=== PATIENT | male | born 1970 | race Caucasian/White ===

== ENCOUNTER → 2021-06-20 07:48 | Outpatient (BNVA) | payer BC, SELFPAY | PROVIDERS: PCP Internal Medicine; Visit Provider Nurse Practitioner Family | DX: Z13.89 Encounter for screening for other disorder (principal) ==

== ENCOUNTER → 2022-03-21 13:34 | Outpatient (BNVA) | payer BC, SELFPAY | PROVIDERS: PCP Internal Medicine; Visit Provider Nurse Practitioner Family | DX: Z13.89 Encounter for screening for other disorder (principal) ==

== ENCOUNTER 2022-09-19 14:28 | Outpatient (AMB) | payer BC, SELFPAY ==
[2022-09-19 14:33] VITALS: BP 108/72; PULSE 79; O2SAT 98; BMI 22.7
--- NOTE | 2022-09-19 14:33 | MHC.OFFVIS ---
Intake Vital Signs 09/19/22 14:33 Height 5 ft 10 in Weight 158 lb 4 oz BMI 22.7 BP 108/72 Blood Pressure Location Lt brachial Position Sitting Pulse 79 Pulse Source Pulse Oximeter Pulse Oximetry (%) 98 Oxygen Delivery Method Room Air Intake Visit Reasons: 6m follow up Tourette's Syndrome - Confirmed Intake Note: Pt presents as a 6 month f/u for Tourettes syndrome. Pt states no concerns. Continuous Improvement Director Required: No Allergies Penicillins [PENICILLINS] Allergy (Unknown, Verified 09/19/22 14:35) UNKNOWN Sulfa (Sulfonamide Antibiotics) [SULFA (SULFONAMIDE ANTIBIOTICS)] Allergy (Unknown, Verified 09/19/22 14:35) UNKNOWN Medication List - Last Reconciled 09/19/22 by GORDON Min clonazepam 1 mg PO QID 30 days ibuprofen 400 mg PO Q6H PRN metformin 500 mg PO BID simvastatin 10 mg PO QPM HPI HPI Comments History of Present Illness Details 52-yr-old male presents for f/u visit. Pt denies any significant interval medical changes. Pt reports his Tourrette and tic symptoms are well-controlled on Clonazepam. He is taking 2-3 doses per day- may notice more symptoms if he takes less. No significant breakthrough symptoms. No recent headaches. ?? PFSH Surgical History H/O hernia repair Family History Mother Diabetes Heart problem Father FH: heart attack Social History (Updated 09/19/22 @ 14:37 by Debra Stanley CMA) Alcohol intake: current Alcohol intake frequency: does not drink Patient Tobacco Use Status: Never used Tobacco Review of Systems Const All systems reviewed & are unremarkable except as noted in HPI and below Physical Exam Vital Signs: Last Vital Signs Pulse 79 09/19/22 14:33 BP 108/72 09/19/22 14:33 Pulse Ox 98 09/19/22 14:33 Oxygen Delivery Method Room Air 09/19/22 14:33 BMI result Body Mass Index 22.7 Const General: cooperative and no acute distress Orientation/consciousness: patient oriented x3 HEENT Head: Yes normocephalic Resp Effort & Inspection: normal respiratory effort and able to speak in complete sentences Neuro General: patient oriented x3, gait normal and CN's II-XI intact bilaterally Cognition (Neuro): normal cognition Motor exam (neuro): 5/5 motor strength present throughout Psych Appearance: grossly normal Mental Status: mental status grossly normal Speech and movement: Normal speech and movement present Affect: normal affect Attitude: cooperative Thought process: Normal thought process present Thought content: Normal thought content present Insight: Good insight present (Psych) Judgement: Good judgement present (Psych) Assessment & Plan Assessment & Plan (1) Tourette's disorder: Comment: initial s/s age 22. motor (dystonic) tic. Code(s): F95.2 - Tourette's disorder Plan Continue clonazepam 1 mg p.o. t.i.d - q.i.d. Future considerations:?Clonidine. f/u in 6 months or sooner prn Medications: Refilled clonazepam 1 mg PO QID 120 tabs 3RF 30 days Coding Level of Care Code Est Pt Level 3 (53968) Diagnoses Tourette's disorder F95.2
== END 2022-09-19 14:54 | disposition home or self-care (01) ==
LOC: HO.HSMS 14:28
PROVIDERS: PCP Internal Medicine; Visit Provider Nurse Practitioner Family
DX: F95.2 Tourette's disorder (principal)
CPT/HCPCS: 99213

== ENCOUNTER → 2022-09-19 14:28 | Outpatient (BNVA) | payer BC, SELFPAY | PROVIDERS: PCP Internal Medicine; Visit Provider Nurse Practitioner Family ==

== ENCOUNTER 2023-03-24 14:33 | Outpatient (AMB) | payer BC, SELFPAY ==
--- NOTE | 2023-03-24 15:00 | MHC.OFFVIS ---
Intake Vital Signs 03/24/23 15:02 Height 5 ft 10 in Weight 148 lb 8 oz BMI 21.3 BP 110/82 Blood Pressure Location Rt brachial Position Sitting Pulse 78 Pulse Oximetry (%) 75 L Oxygen Delivery Method Room Air Intake Visit Reasons: 6m follow up Tourette's Syndrome-LVM Intake Note: patient presents for tourette's syndrome. Allergies Penicillins [PENICILLINS] Allergy (Unknown, Verified 03/24/23 15:05) UNKNOWN Sulfa (Sulfonamide Antibiotics) [SULFA (SULFONAMIDE ANTIBIOTICS)] Allergy (Unknown, Verified 03/24/23 15:05) UNKNOWN Medication List - Last Reconciled 03/24/23 by GORDON Min clonazepam 1 mg PO QID 30 days ibuprofen 400 mg PO Q6H PRN metformin 500 mg PO BID simvastatin 10 mg PO QPM HPI HPI Comments History of Present Illness Details 52-yr-old male presents for f/u visit. Pt reports the following interval medical history changes: He lost his mother in early Feb. He recently had Covid-19, states was pretty sick x's 1.5 weeks, but was able to a manage at home. He has had a 10 lb wt loss- thinks maybe was d/t the Covid-19 infection as he was not eating as much. His tics are stable. He did not notice any increase in tics while he was sick. Using Clonazepam bid-tid. PFSH Surgical History H/O hernia repair Family History (Updated 03/24/23 @ 15:06 by OPAL Carter) Mother Diabetes Heart problem Father FH: heart attack Social History Alcohol intake: current Alcohol intake frequency: does not drink Patient Tobacco Use Status: Never used Tobacco Review of Systems Const All systems reviewed & are unremarkable except as noted in HPI and below Physical Exam Vital Signs: Last Vital Signs Pulse 78 03/24/23 15:02 BP 110/82 03/24/23 15:02 Pulse Ox 75 L 03/24/23 15:02 Oxygen Delivery Method Room Air 03/24/23 15:02 BMI result Body Mass Index 21.3 Const General: cooperative and no acute distress Resp Effort & Inspection: normal respiratory effort and able to speak in complete sentences Neuro Other: A&O x's No visible tics Gait normal Pleasant affect Assessment & Plan Assessment & Plan (1) Tourette's disorder: Comment: initial s/s age 22. motor (dystonic) tic. Code(s): F95.2 - Tourette's disorder Plan Continue clonazepam 1 mg p.o. BID-TID Future considerations:?Clonidine. f/u in 6 months or sooner prn Medications: Changed From clonazepam 1 mg PO QID 30 days 120 tabs 3RF To clonazepam 1 mg PO TID 30 days 90 tabs 5RF Coding Level of Care Code Est Pt Level 3 (28532) Diagnoses Tourette's disorder F95.2
[2023-03-24 15:02] VITALS: BP 110/82; PULSE 78; O2SAT 75; BMI 21.3
== END 2023-03-24 15:24 | disposition home or self-care (01) ==
PROVIDERS: PCP Internal Medicine; Visit Provider Nurse Practitioner Family
DX: F95.2 Tourette's disorder (principal)
CPT/HCPCS: 99213

== ENCOUNTER → 2023-03-24 14:33 | Outpatient (BNVA) | payer BC, SELFPAY | PROVIDERS: PCP Internal Medicine; Visit Provider Nurse Practitioner Family ==

== ENCOUNTER 2023-09-22 14:22 | Outpatient (AMB) | payer BC, SELFPAY ==
--- NOTE | 2023-09-22 14:35 | MHC.OFFVIS ---
Vital Signs 09/22/23 14:36 Height 5 ft 10 in Weight 156 lb BMI 22.4 BP 98/76 Blood Pressure Location Rt brachial Position Sitting Pulse 74 Pulse Source Pulse Oximeter Pulse Oximetry (%) 99 Oxygen Delivery Method Room Air Intake Visit Reasons: 6M follow up-CONF Intake Note: Patient presents for 6 month follow up. no issues or concerns Allergies Penicillins [PENICILLINS] Allergy (Unknown, Verified 09/22/23 14:39) UNKNOWN Sulfa (Sulfonamide Antibiotics) [SULFA (SULFONAMIDE ANTIBIOTICS)] Allergy (Unknown, Verified 09/22/23 14:39) UNKNOWN Medication List - Last Reconciled 09/22/23 by Fina Marmolejo, GORDON clonazepam 1 mg PO TID 30 days ibuprofen 400 mg PO Q6H PRN metformin 500 mg PO BID simvastatin 10 mg PO QPM HPI Comments Details: 53-yr-old male presents for f/u visit. Pt reports he slipped off his trailer in June- caused a right ankle sprain. Pt reports his tics are stable. Using Clonazepam 2-3 tabs per day. He did not notice any increase in tics while he was recovering from his right ankle sprain. [facility] Surgical History H/O hernia repair Family History Mother Diabetes Heart problem Father FH: heart attack Social History Alcohol intake: current Alcohol intake frequency: does not drink Patient Tobacco Use Status: Never used Tobacco Review of Systems Const All systems reviewed & are unremarkable except as noted in HPI and below Physical Exam Vital Signs: Last Vital Signs Pulse 74 09/22/23 14:36 BP 98/76 09/22/23 14:36 Pulse Ox 99 09/22/23 14:36 Oxygen Delivery Method Room Air 09/22/23 14:36 BMI result Body Mass Index 22.4 Const General: cooperative and no acute distress Orientation/consciousness: patient oriented x3 Resp Effort & Inspection: normal respiratory effort and able to speak in complete sentences Neuro General: patient oriented x3 Cranial nerves: Yes CN's II-XII intact bilaterally Gait exam (Neuro): Normal gait present Motor exam (neuro): 5/5 motor strength present throughout Assessment & Plan Assessment & Plan (1) Tourette's disorder: Comment: initial s/s age 22. motor (dystonic) tic. Code(s): F95.2 - Tourette's disorder Category: Medical Plan Continue clonazepam 1 mg p.o. BID-TID Future considerations:?Clonidine. f/u in 6 months or sooner prn Medications: Refilled clonazepam 1 mg PO TID 30 days 90 tabs 5RF Coding Level of Care Code Est Pt Level 4 (86000) Diagnoses Tourette's disorder F95.2
[2023-09-22 14:36] VITALS: BP 98/76; PULSE 74; O2SAT 99; BMI 22.4
== END 2023-09-22 15:07 | disposition home or self-care (01) ==
PROVIDERS: PCP Internal Medicine; Visit Provider Nurse Practitioner Family
DX: F95.2 Tourette's disorder (principal)
CPT/HCPCS: 99214

== ENCOUNTER → 2023-09-22 14:22 | Outpatient (BNVA) | payer BC, SELFPAY | PROVIDERS: PCP Internal Medicine; Visit Provider Nurse Practitioner Family ==

== ENCOUNTER 2024-04-09 13:57 | Outpatient (AMB) | payer BC, SELFPAY ==
--- OUTSIDE RECORDS SUMMARY | 2024-04-09 14:00 | XMS_ITS | Clinical Summary ---
Author Organization [address] Address [address] [place] [address] Phone Care Team Providers Care Client Associate Name Role Phone NilsaAnam edmond Primary Care Provider [phone] Social History Tobacco Use Types Packs/Day Years Used Date Smoking Tobacco: Never Assessed Sex and Gender Information Value Date Recorded Sex Assigned at Not on file Gender Identity Not on file Sexual Orientation Not on file Job Start Date Occupation Industry Not on file Not on file Not on file Plan of Treatment Health Maintenance Due Date Last Done Comments Pneumococcal Vaccine: Pediatrics (0 to 5 Years) and At-Risk Patients (6 to 64 Years) (1 of 2 - PCV) 1978 Diabetes: Annual Foot Exam 1982 Diabetes: Annual Retina Eye Exam 1982 DTaP,Tdap,and Td Vaccines (1 - Tdap) 08/08/1991 Hepatitis B Vaccines (1 of 3 - 19+ 3-dose series) 08/08/1991 Colorectal Cancer Screening: Colonoscopy 02/09/2022 Depression Screening 02/09/2022 HIV Screening 02/09/2022 Hepatitis C Screening 02/09/2022 Social Influencers of Health Screening 02/09/2022 Zoster Vaccines (1 of 2) 2022 COVID-19 Vaccine ( - 2023-2 5 season) 2023 12/28/2020, 04/06/2020, 03/16/2020 Influenza Vaccine (#1) 2023 , 11/21/2014 Diabetes: Blood Sugar Contro l Test (HGBA1C) 07/26/2024 01/27/2024 Diabetes: Annual Urine Albumin-Creatinine Ratio (uACR) 01/26/2025 01/27/2024 Diabetes: Annual GFR (Glomerular Filtration Rate) 01/26/2025 01/27/2024 Cholesterol Screening (Lipid Panel) 01/26/2029 01/27/2024 HIB Vaccines Aged Out No longer eligi ble based on patient's age to complete this topic HPV Vaccines Aged Out No longer eligi ble based on patient's age to complete this topic Hepatitis A Vaccines Aged Out No long er eligible based on patient's age to complete this topic IPV Vaccines Aged Out No longer eligi ble based on patient's age to complete this topic MMR Vaccines Aged Out No longer eligi ble based on patient's age to complete this topic Meningococcal ACWY Vaccine Aged Out N o longer eligible based on patient's age to complete this topic RSV Immunization Patients Under 20 months Aged Out No longer eligible b ased on patient's age to complete this topic Varicella Vaccines Aged Out No longer eligible based on patient's age to complete this topic Procedures Procedure Name Priority Date/Time Associated Diagnosis Comments CBC WITH AUTO DIFFERENTIAL Routine 01/27/2024 7:55 AM EST Diabetes mellitus (CMS/HCC) Hyperlipemia Routine general medical examination at a health care facility HEMOGLOBIN A1C Routine 01/27/2024 7:55 AM EST Diabetes mellitus (CMS/HCC) Hyperlipemia Routine general medical examination at a health care facility MICROALBUMIN CREATININE URINE RATIO Routine 01/27/2024 7:55 AM EST Diabetes mellitus (CMS/HCC) Hyperlipemia Routine general medical examination at a health care facility CBC AND DIFFERENTIAL Routine 01/27/2024 7:55 AM EST Diabetes mellitus (CMS/HCC) Hyperlipemia Routine general medical examination at a health care facility THYROID STIMULATING HORMONE Routine 01/27/2024 7:55 AM EST Diabetes mellitus (CMS/HCC) Hyperlipemia Routine general medical examination at a health care facility PROSTATE SPECIFIC ANTIGEN SCREEN Routine 01/27/2024 7:55 AM EST Diabetes mellitus (CMS/HCC) Hyperlipemia Routine general medical examination at a health care facility BASIC METABOLIC PANEL Routine 01/27/2024 7:55 AM EST Diabetes mellitus (CMS/HCC) Hyperlipemia Routine general medical examination at a health care facility CREATINE KINASE Routine 01/27/2024 7:55 AM EST Diabetes mellitus (CMS/HCC) Hyperlipemia Routine general medical examination at a health care facility ASPARTATE AMINOTRANSFERASE Routine 01/27/2024 7:55 AM EST Diabetes mellitus (CMS/HCC) Hyperlipemia Routine general medical examination at a [facility] care facility ALANINE AMINOTRANSFERASE Routine 024 7:55 AM EST Diabetes mellitus (CMS/HCC) Hyperlipemia Routine general medical examination at a health care facility LIPID PANEL WITH REFLEX TO DIRECT LDL Routine 01/27/2024 7:55 AM EST Diabetes mellitus (CMS/HCC) Hyperlipemia Routine general medical examination at a [facility] care facility from Last 3 Months Results * Prostate specific antigen screen (01/27/2024 7:55 AM EST) PSA 0.48 0.00 - 4.00 ng/mL LAB CHEMISTRY METHOD 01/29/2024 9:26 PM EST [facility] Blood Venous blood specimen / Unknown Venipuncture / Unknown 01/27/2024 7:55 AM EST 01/27/2024 7:55 AM EST Narrative [facility] - 01/29/2024 9:26 PM EST The Siemens Advia Centaur Chemiluminescent Immunoassay is used. Results obtained with different assay methods or kits cannot be used interchangeably. Results cannot be interpreted as absolute evidence of the presence or absence of malignant disease. Dot Mariee NP LAB BLOOD ORDER R[facility]MON[facility] [address] [place] [address], * Lipid panel with reflex to direct LDL (01/27/2024 7:55 AM EST) Cholesterol 130 0 - 200 mg/dL LAB CHEMISTRY METHOD 01/27/2024 11:47 AM EST [facility] Triglycerides 95 0 - 150 mg/dL LAB CHEMISTRY METHOD 01/27/2024 11:47 AM EST [facility] HDL 45 >=40 mg/dL LAB CHEMISTRY METHOD 01/27/2024 11:47 AM [facility] LDL Calculated 66 0 - 100 mg/dL LAB CHEMISTRY METHOD 01/27/2024 11:47 AM [facility] VLDL Cholesterol Shubham 19 mg/dL LAB CHEMISTRY METHOD 01/27/2024 11:47 AM [facility] Non HDL Chol. (LDL+VLDL) 85 <145 mg/dL LAB CHEMISTRY METHOD 01/27/2024 11:47 AM [facility] Chol/HDL Ratio 2.9 0.0 - 4.4 LAB CHEMISTRY METHOD 01/27/2024 11:47 AM [facility] Blood Venous blood specimen / Unknown Venipuncture / Unknown 01/27/2024 7:55 AM EST 01/27/2024 7:55 AM EST Dot Mariee TRANSIT VEHICLE INSPECTOR LAB BLOOD ORDER R[facility]MOND [facility] [address] [place] [address], * (ABNORMAL) CBC auto differential (01/27/2024 7:55 AM EST) WBC 7.4 4.8 - 10.8 K/mcL LAB HEMETOLOGY METHOD 01/27/2024 11:17 AM [facility] RBC 4.60 4.50 - 5.50 M/mcL LAB HEMETOLOGY METHOD 01/27/2024 11:17 AM [facility] Hemoglobin 14.5 13.5 - 17.5 g/dL LAB HEMETOLOGY METHOD 01/27/2024 11:17 AM [facility] Hematocrit 41.5(L) 42.0 - 54.0 % LAB HEMETOLOGY METHOD 01/27/2024 11:17 AM [facility] MCV 89.8 79.0 - 98.0 FL LAB HEMETOLOGY METHOD 01/27/2024 11:17 AM [facility] MCH 31.4 27.0 - 32.0 pcg LAB HEMETOLOGY METHOD 01/27/2024 11:17 AM [facility] MCHC 34.9 32.0 - 37.0 g/dL LAB HEMETOLOGY METHOD 01/27/2024 11:17 AM [facility] RDW 12.0 11.0 - 15.0 % LAB HEMETOLOGY METHOD 01/27/2024 11:17 AM [facility] Platelets 342 130 - 400 K/mcL LAB HEMETOLOGY METHOD 01/27/2024 11:17 AM [facility] MPV 10.4 7.0 - 11.0 FL LAB HEMETOLOGY METHOD 01/27/2024 11:17 AM [facility] NRBC 0.0 <1.0 % LAB HEMETOLOGY METHOD 01/27/2024 11:17 AM [facility] NRBC Absolute 0.00 <0.10 K/mcL LAB HEMETOLOGY METHOD 01/27/2024 11:17 AM [facility] Neutrophils Relative 67.2 % LAB HEMETOLOGY METHOD 01/27/2024 11:17 AM [facility] Lymphocytes Relative 23.4 % LAB HEMETOLOGY METHOD 01/27/2024 11:17 AM [facility] Monocytes Relative 7.0 % LAB HEMETOLOGY METHOD 01/27/2024 11:17 AM [facility] Eosinophils Relative 1.3 % LAB HEMETOLOGY METHOD 01/27/2024 11:17 AM [facility] Basophils Relative 0.8 % LAB HEMETOLOGY METHOD 01/27/2024 11:17 AM EST [facility] Immature Granulocytes Relative 0.3 % LAB HEMETOLOGY METHOD 01/27/2024 11:17 AM EST [facility] Neutrophils Absolute 5.00 1.50 - 7.00 K/mcL LAB HEMETOLOGY METHOD 01/27/2024 11:17 AM EST [facility] Lymphocytes Absolute 1.74 1.00 - 5.00 K/mcL LAB HEMETOLOGY METHOD 01/27/2024 11:17 AM EST [facility] Monocytes Absolute 0.52 0.20 - 1.00 K/mcL LAB HEMETOLOGY METHOD 01/27/2024 11:17 AM EST [facility] Eosinophils Absolute 0.10 0.00 - 0.50 K/mcL LAB HEMETOLOGY METHOD 01/27/2024 11:17 AM EST [facility] Basophils Absolute 0.06 0.00 - 0.20 K/mcL LAB HEMETOLOGY METHOD 01/27/2024 11:17 AM [facility] Immature Granulocytes Absolute 0.02 0.00 - 0.03 K/mcL LAB HEMETOLOGY METHOD 01/27/2024 11:17 AM [facility] Blood Venous blood specimen / Unknown Venipuncture / Unknown 01/27/2024 7:55 AM EST 01/27/2024 7:55 AM EST Dot Mariee NP LAB BLOOD ORDER [facility]) [facility] [address] [place] [address], * Microalbumin creatinine urine ratio (01/27/2024 7:55 AM EST) Creatinine, Urine 118.0 mg/dL LAB CHEMISTRY METHOD 01/27/2024 12:18 PM EST [facility] Microalb, Ur 9.0 0.0 - 29.0 mg/L LAB CHEMISTRY METHOD 01/27/2024 12:18 PM EST [facility] Microalb/Creat Ratio 8 <30 mg/g creat LAB CHEMISTRY METHOD 01/27/2024 12:18 PM EST [facility] Urine Urine specimen obtained by clean catch procedure / Unknown Non-blood Collection / Unknown 01/27/2024 7:55 AM EST 01/27/2024 7:55 AM EST Dot Mariee TRANSIT VEHICLE INSPECTOR LAB URINE ORDER RAYMOND [facility] [address] [place] [address], * Alanine aminotransferase (01/27/2024 7:55 AM EST) ALT (SGPT) 34 10 - 60 unit/L LAB CHEMISTRY METHOD 01/27/2024 11:43 AM EST [facility] Blood Venous blood specimen / Unknown Venipuncture / Unknown 01/27/2024 7:55 AM EST 01/27/2024 7:55 AM EST Dot Mariee TRANSIT VEHICLE INSPECTOR LAB BLOOD ORDER [facility]MOND [facility] [address] [place] [address], [place] [phone] * Aspartate aminotransferase (01/27/2024 7:55 AM EST) AST (SGOT) 21 10 - 42 unit/L LAB CHEMISTRY METHOD 01/27/2024 11:47 AM EST [facility] Blood Venous blood specimen / Unknown Venipuncture / Unknown 01/27/2024 7:55 AM EST 01/27/2024 7:55 AM EST Dot Mariee TRANSIT VEHICLE INSPECTOR LAB BLOOD ORDER [facility]MOND Performing Organization Address City/[facility]/ZIP Co de Phone Number [facility] [address] [place] [address], * Thyroid stimulating hormone (01/27/2024 7:55 AM EST) Pathologist [facility] TSH 1.45 0.40 - 4.00 mcIU/mL LAB CHEMISTRY METHOD 01/27/2024 11:51 AM EST [facility] Blood Venous blood specimen / Unknown Venipuncture / Unknown 01/27/2024 7:55 AM EST 01/27/2024 7:55 AM EST Dot Mariee TRANSIT VEHICLE INSPECTOR LAB BLOOD ORDER [facility]MOND Performing Organization Address [facility] Co de Phone Number [facility] [address] [place] [address], * (ABNORMAL) Hemoglobin A1c (01/27/2024 7:55 AM EST) [facility] Hemoglobin A1C 6.9(H) <6.5 % LAB CHEMISTRY METHOD 01/27/2024 9:14 PM EST [facility] Mean Bld Glu Estim. 151 mg/dL LAB CHEMISTRY METHOD 01/27/2024 9:14 PM EST [facility] Blood Venous blood specimen / Unknown Venipuncture / Unknown 01/27/2024 7:55 AM EST 01/27/2024 7:55 AM EST Dot Mariee TRANSIT VEHICLE INSPECTOR LAB BLOOD ORDER RAYMOND Performing Organization Address City/[facility]/ZIP Co de Phone Number [facility] [address] [place] [address], [place] [phone] * Creatine kinase (01/27/2024 7:55 AM EST) Pathologist [facility] Total CK 80 22 - 269 unit/L LAB CHEMISTRY METHOD 01/27/2024 11:47 AM EST [facility] Blood Venous blood specimen / Unknown Venipuncture / Unknown 01/27/2024 7:55 AM EST 01/27/2024 7:55 AM EST Dot B Jaylene PROCTOR LAB BLOOD ORDER RAYMOND [facility] [address] [place] [address], * (ABNORMAL) Basic metabolic panel (01/27/2024 7:55 AM EST) Sodium 139 133 - 145 mmol/L LAB CHEMISTRY METHOD 01/27/2024 11:47 AM [facility] Potassium 4.4 3.5 - 5.5 mmol/L LAB CHEMISTRY METHOD 01/27/2024 11:47 AM [facility] Chloride 105 96 - 110 mmol/L LAB CHEMISTRY METHOD 01/27/2024 11:47 AM [facility] CO2 28 21 - 32 mmol/L LAB CHEMISTRY METHOD 01/27/2024 11:47 AM [facility] Anion Gap 6 3 - 11 LAB CHEMISTRY METHOD 01/27/2024 11:47 AM [facility] Glucose 149(H) 70 - 100 mg/dL LAB CHEMISTRY METHOD 01/27/2024 11:47 AM [facility] BUN 23 5 - 25 mg/dL LAB CHEMISTRY METHOD 01/27/2024 11:47 AM [facility] Creatinine 0.84 0.70 - 1.30 mg/dL LAB CHEMISTRY METHOD 01/27/2024 11:47 AM [facility] eGFR 106 >=60 mL/min/1. 73m2 LAB CHEMISTRY METHOD 01/27/2024 11:47 AM [facility] Comment:Calculation based on the??Chronic Kidney Disease Epidemiology Collaboration (CKD-EPI) equation refit??without adjustment for race. BUN/Creatinine Ratio 27.4 LAB CHEMISTRY METHOD 01/27/2024 11:47 AM EST [facility] Calcium 9.6 8.5 - 10.5 mg/dL LAB CHEMISTRY METHOD 01/27/2024 11:47 AM EST [facility] Blood Venous blood specimen / Unknown Venipuncture / Unknown 01/27/2024 7:55 AM EST 01/27/2024 7:55 AM EST Dot Mariee TRANSIT VEHICLE INSPECTOR LAB BLOOD ORDER [facility]MOND [facility] [address] [place] [address], from Last 3 Months Care Teams Client Associate Relationship Specialty Start Date End Date Anam Michele DO [address] [place] [phone] PCP - General Internal Medicine 01/27/24
--- OUTSIDE RECORDS SUMMARY | 2024-04-09 14:00 | XMS_ITS | Clinical Summary ---
Author Organization [facility] Address [address] [place] [address] Phone Care Team Providers Care Invasive Cardiovascular Technologist Name Role Phone NO PCP, , Primary Care Provider [facility]ailabl e [facility] Un[facility] Unavailable Reason for Visit and Chief Complaint New Patient Plan of Treatment Pending Tests Order Diagnosis Results Due Ordering P jasmyn Follow Up - Return to School / Work Note Zeeshan Plascencia MD Last Documented On 4 9:55AM ; [facility] Follow Up - Appointment 1 Month Oth tatyana bey of upper and lower end of right fibula, init 06/19/23 Concepción CRAVEN Last Documented On 4 9:55AM ; [facility] Assessments Includes: Assessments from this encounter No Assessments Recorded Medical Equipment - Implanted Devices Includes: Current Devices No Medical Equipment Recorded Medications Includes: Medications discussed during this encounter and other current Medications Current Medications (continue as prescribed) traMADol HCl 50 MG Oral Tablet 06/19/2023 Provider: Diagnosis: Last Documented On 4 8:57AM By Preet Larson ; [facility] Ibuprofen 600 MG Oral Tablet 06/19/2023 Provider: Diagnosis: Last Documented On 4 8:57AM By Preet Larson ; [facility] Medications Administered Includes: Administered Medications from this encounter No Administered Medications Recorded Vital Signs Includes: Vital Signs from this encounter Vital Name 06/19/2023 08:36A Blood Pressure Sitting (mmHg) 133/81 Pulse Rate-Sitting (bpm) 88 Temp-Temporal 96.9 Height (in) 70 Weight (lb) 148 Body Mass Index 21.2 Body Surface Area 1.8 Oxygen Saturation (%) 99 Last Documented: On 06/19/2023 8:37AM ; [facility], Results Includes: Results discussed during this encounter No Results Recorded For Specified Dates History of Present Illness Includes: History of Present Illness from this encounter HPI CC right distal fibula avulsion fracture Date of injury 06/14/2023 HPI: this is a 52-year-old male who presented to the emergency room on 06/16/2023 complaining of right ankle and foot pain after he had a fall off the back of his tractor trailer on 06/14/2023. He states that when he fell off on the ground he rolled his right ankle. He has had increased pain since then. He had swelling and bruising associated with the pain. He had taken ibuprofen at home and came to the emergency room for further evaluation. In the emergency room the patient underwent a workup including x-ray of the right foot and ankle which revealed an avulsion fracture of the right distal foot with fibula fracture. Patient was placed in a walking boot and instructed to follow-up in our office for further evaluation. He is here for follow-up. He states overall he has been doing okay at home. He has been wearing the boot and putting weight on his right foot with minimal pain. He states the boot is a little bit cumbersome. He denies any paresthesias. Past medical history: hyperlipidemia diabetes and anxiety Social history: Allergies: penicillin and sulfa Social history: denies alcohol or drug use Review of systems as stated above in HPI otherwise reviewed and negative for acute abnormality Physical Exam: General AOx3 Musculoskeletal: On exam the patient's right lower extremity there is diffuse swelling and ecchymosis noted throughout the right ankle and foot. There is no lacerations or abrasions. He is tender to palpation along the distal fibula and extending along the d third and fourth metatarsals of the right foot He is able to dorsiflex and plantarflex with mild pain. He has mild pain with inversion and eversion of the foot. EHL and FHL function intact. Sensation light touch intact throughout. Pedal pulse palpable and foot is warm and well-perfused. X-rays: X-rays of the right ankle taken in the emergency room on 06/16/2023 revealed a small avulsion fracture of the distal fibula. Ankle mortise maintained. No other abnormalities noted. Impression: Right distal fibula avulsion fracture Plan: The patient will be treated with conservative treatment. He will be placed in a lace up brace today. He can be weightbearing as tolerated to the right lower extremity. Continue with ibuprofen for pain relief. Rest ice and elevate right ankle. The patient has a note to be out of work until 06/23/2023. The patient should follow- up in 1 month for reevaluation. If the patient is still having trouble at that time we will consider physical therapy. No x-ray at that visit will be necessary. Patient agreed with the above plan. Case discussed with Dr. Plascencia who agrees with the above plan. Social History No Social History Recorded - Smoking Status Unknown Medical History Includes: Medical History addressed during this encounter No Medical History Recorded Family History Includes: Family History addressed during this encounter No Family History Recorded Review of Systems Includes: Review of Systems from this encounter No Review of Systems Recorded Mental Status Includes: Mental Status from this encounter No Mental Status Recorded Functional Status Includes: Functional Status from this encounter No Functional Status Recorded Physical Exam Includes: Physical Exam from this encounter Encounters Encounter Provider Location Date Check-In Time Check-Out Time Diagnosis New Patient Concepción CRAVEN [facility], 4 8:40AM 9:49AM Insurance Includes: Active Insurance Policies Plan Name Member ID Group # Subscriber Relationship Effect en Dates 1 - [facility] [place] Elect [id number] Lenin escalante Clinical Notes Includes: Clinical Notes from this encounter * Progress note Date Encounter Last Documented by 06/19/2023 New Patient Last documented on 06/19/2023; 9:55 AM, Concepción CRAVEN; [facility], History of Present Illness CC right distal fibula avulsion fracture Date of injury 06/14/2023 HPI: this is a 52-year-old male who presented to the emergency room on 06/16/2023 complaining of right ankle and foot pain after he had a fall off the back of his tractor trailer on 06/14/2023. He states that when he fell off on the ground he rolled his right ankle. He has had increased pain since then. He had swelling and bruising associated with the pain. He had taken ibuprofen at home and came to the emergency room for further evaluation. In the emergency room the patient underwent a workup including x-ray of the right foot and ankle which revealed an avulsion fracture of the right distal foot with fibula fracture. Patient was placed in a walking boot and instructed to follow-up in our office for further evaluation. He is here for follow-up. He states overall he has been doing okay at home. He has been wearing the boot and putting weight on his right foot with minimal pain. He states the boot is a little bit cumbersome. He denies any paresthesias. Past medical history: hyperlipidemia diabetes and anxiety Social history: Allergies: penicillin and sulfa Social history: denies alcohol or drug use Review of systems as stated above in HPI otherwise reviewed and negative for acute abnormality Physical Exam: General AOx3 Musculoskeletal: On exam the patient's right lower extremity there is diffuse swelling and ecchymosis noted throughout the right ankle and foot. There is no lacerations or abrasions. He is tender to palpation along the distal fibula and extending along the d third and fourth metatarsals of the right foot He is able to dorsiflex and plantarflex with mild pain. He has mild pain with inversion and eversion of the foot. EHL and FHL function intact. Sensation light touch intact throughout. Pedal pulse palpable and foot is warm and well-perfused. X-rays: X-rays of the right ankle taken in the emergency room on 06/16/2023 revealed a small avulsion fracture of the distal fibula. Ankle mortise maintained. No other abnormalities noted. Impression: Right distal fibula avulsion fracture Plan: The patient will be treated with conservative treatment. He will be placed in a lace up brace today. He can be weightbearing as tolerated to the right lower extremity. Continue with ibuprofen for pain relief. Rest ice and elevate right ankle. The patient has a note to be out of work until 06/23/2023. The patient should follow- up in 1 month for reevaluation. If the patient is still having trouble at that time we will consider physical therapy. No x-ray at that visit will be necessary. Patient agreed with the above plan. Case discussed with Dr. Plascencia who agrees with the above plan. Current Medication - Ibuprofen 600 MG Oral Tablet 0 days, 0 refills - traMADol HCl 50 MG Oral Tablet 0 days, 0 refills Physical Findings - Vitals taken 06/19/2023 08:36 am BP-Sitting 133/81 mmHg Pulse Rate-Sitting 88 bpm Temp-Temporal 96.9 F Height 70 in Weight 148 lbs Body Mass Index 21.2 kg/m2 Body Surface Area 1.8 m2 Oxygen Saturation 99 % Plan StartCited - Oth fracture of upper and lower end of right fibula, init Follow Up/Appointment: 1 Month EndCited StartCited - Other Follow Up/Return to: School / Work Note EndCited
--- OUTSIDE RECORDS SUMMARY | 2024-04-09 14:00 | XMS_ITS | Clinical Summary ---
Author Organization [place] [facility] Address [address] [place] [address] Phone Care Team Providers Care Body Masker Name Role Phone NO PCP, , Primary Care Provider Unavailabl e [place] [facility] Unavailable Unavailable Reason for Visit and Chief Complaint Procedure Plan of Treatment 1. Range of motion and strengthening right ankle. 2. Avoid activities such as climbing ladders and rollerblading. 3. Return to office in 6 weeks and consider MRI if small bump over anterior aspect of right ankle joint still present - Last Documented On 07/17/2023 8:32AM ; [facility] Pending Tests Order Diagnosis Results Due Ordering Enedina vines Follow Up - Appointment 6 weeks Sprain o f unspecified ligament of right ankle, subs encntr 07/17/23 David Santana MD Last Documented On 4 8:32AM ; [facility] Assessments Includes: Assessments from this encounter No Assessments Recorded Medical Equipment - Implanted Devices Includes: Current Devices No Medical Equipment Recorded Medications Includes: Medications discussed during this encounter and other current Medications Current Medications (continue as prescribed) traMADol HCl 50 MG Oral Tablet 06/19/2023 Provider: Diagnosis: Last Documented On 4 8:57AM By Preet Larson ; [facility] Ibuprofen 600 MG Oral Tablet 06/19/2023 Provider: Diagnosis: Last Documented On 4 8:57AM By Preet Larson ; [facility] Medications Administered Includes: Administered Medications from this encounter No Administered Medications Recorded Vital Signs Includes: Vital Signs from this encounter Vital Name 07/17/2023 08:06A Blood Pressure Sitting (mmHg) 123/83 Pulse Rate-Sitting (bpm) 88 Temp-Temporal 97 Height (in) 70 Weight (lb) 148 Body Mass Index 21.2 Body Surface Area 1.8 Oxygen Saturation (%) 99 Last Documented: On 07/17/2023 8:07AM ; [facility], Results Includes: Results discussed during this encounter No Results Recorded For Specified Dates History of Present Illness Includes: History of Present Illness from this encounter HPI HPI: this is a 52-year-old male who [...] little bit cumbersome. He denies any paresthesias. Social History No Social History Recorded - Smoking Status Unknown Medical History Includes: Medical History addressed during this encounter No Medical History Recorded Family History Includes: Family History addressed during this encounter No Family History Recorded Review of Systems Includes: Review of Systems from this encounter 1. Sprain right ankle 2. Grape sized bump over anterior aspect of right ankle which could represent a ganglion cyst or possible outpouching of the joint Mental Status Includes: Mental Status from this encounter No Mental Status Recorded Functional Status Includes: Functional Status from this encounter No Functional Status Recorded Physical Exam Includes: Physical Exam from this encounter Encounters Encounter Provider Location Date Check-In Time Check-Out Time Diagnosis Procedure David Santana MD [place] [facility], 8:00AM 8:26AM Insurance Includes: Active Insurance Policies Plan Name Member ID Group # Subscriber Relationship Effect en Dates 1 - [employer] [id number] Lenin escalante Clinical Notes Includes: Clinical Notes from this encounter * Progress note Date Encounter Last Documented by 07/17/2023 Procedure Last documented on 07/17/2023; 8:32 AM, David Santana MD; [facility], Chief Complaint Avulsion fracture right distal fibula History of Present Illness HPI: this is a 52-year-old male who [...] little bit cumbersome. He denies any paresthesias. Current Medication - Ibuprofen 600 MG Oral Tablet 0 days, 0 refills - traMADol HCl 50 MG Oral Tablet 0 days, 0 refills Physical Findings - Vitals taken 07/17/2023 08:06 am BP-Sitting 123/83 mmHg Pulse Rate-Sitting 88 bpm Temp-Temporal 97 F Height 70 in Weight 148 lbs Body Mass Index 21.2 kg/m2 Body Surface Area 1.8 m2 Oxygen Saturation 99 % Minimal swelling right ankle. Neurovascular status right lower extremity intact. Small grape sized bump over anterior aspect of right ankle which could represent a ganglion cyst or possible outpouching of the joint. OB Ultrasound No x-rays taken today User Defined 4 1. Sprain right ankle 2. Grape sized bump over anterior aspect of right ankle which could represent a ganglion cyst or possible outpouching of the joint Plan StartCited - Sprain of unspecified ligament of right ankle, subs encntr Follow Up/Appointment: 6 weeks EndCited 1. Range of motion and strengthening right ankle. 2. Avoid activities such as climbing ladders and rollerblading. 3. Return to office in 6 weeks and consider MRI if small bump over anterior aspect of right ankle joint still present
--- OUTSIDE RECORDS SUMMARY | 2024-04-09 14:00 | XMS_ITS ---
Care Plan - [facility] Created on: April 09, 2024 Lenin Bloom : 1970 Sex: Male Author Organization [place] [facility] Address [address] [place] [phone] Phone Care Team Providers Care Lead Data Entry Operator Name Role Phone NO PCP, , Primary Care Provider Unavailabl e [facility] Unavailable Unavailable
--- OUTSIDE RECORDS SUMMARY | 2024-04-09 14:00 | XMS_ITS ---
Author Organization [place] [facility] Address [address] [place] [address] Phone Care Team Providers Care Sand Cleaning Machine Operator Name Role Phone NO PCP, , Primary Care Provider [facility]availabl e [facility] Unavailable Unavailable Plan of Treatment No Plan of Treatment Recorded Assessments Includes: Assessments for all patient encounters No Assessments Recorded Medical Equipment - Implanted Devices Includes: Current and historical Devices No Medical Equipment Recorded Medications Includes: Current and historical Medications Current Medications (continue as prescribed) traMADol HCl 50 MG Oral Tablet 06/19/2023 Provider: Diagnosis: Last Documented On 4 8:57AM By Preet Larson ; [facility] Ibuprofen 600 MG Oral Tablet 06/19/2023 Provider: Diagnosis: Last Documented On 4 8:57AM By Preet Larson ; [facility] Medications Administered Includes: Administered Medications in patient's chart No Administered Medications Recorded Vital Signs Includes: Vital Signs from 04/09/2023 through 04/09/2024 Vital Name 08/28/2023 08:03A 07/17/2023 08:06A 06/18 08:36A Blood Pressure Sitting (mmHg) 113/74 123/83 133/81 Pulse Rate-Sitting (bpm) 79 88 88 Temp-Temporal 96.9 97 96.9 Height (in) 70 70 70 Weight (lb) 148 148 148 Body Mass Index 21.2 21.2 21.2 Body Surface Area 1.8 1.8 1.8 Oxygen Saturation (%) 89 99 99 Last Documented: On 08/28/2023 8:03AM ; [facility] On 07/17/2023 8:07AM ; [facility] On 06/19/2023 8:37AM ; [facility] Results Includes: Results from 04/09/2023 through 04/09/2024 No Results Recorded For Specified Dates History of Present Illness History of Present Illness not supported for this document type No History of Present Illness Recorded Social History No Social History Recorded - Smoking Status Unknown Procedures and Surgical History Includes: Procedures from 04/09/2023 through 04/09/2024 Procedures Code Diagnosis Performing Provider Service Location Service Date Treatment Of Ankle Fracture (Right) [address] Ot fracture of upper and lower end of right fibula, init Zeeshan Plascencia MD [facility], 06/19/2023 Last Documented On 4 9:17AM ; [facility], Medical History Includes: Medical History in patient's chart No Medical History Recorded Family History Includes: Family History in patient's chart No Family History Recorded Review of Systems Review of Systems not supported for this document type No Review of Systems Recorded Mental Status No Mental Status Recorded Functional Status No Functional Status Recorded Physical Exam Physical Exam not supported for this document type No Physical Exam Recorded Encounters Includes: Encounters from 04/09/2023 through 04/09/2024 Encounter Provider Location Date Check-In Time Check-Out Time Diagnosis Procedure [facility] 8:00[facility] 8:37AM Procedure [facility] Santana [facility], 4 8:00AM 8:26AM New Patient Concepción CRAVEN [facility] 4 8:40AM 9:49AM Insurance Includes: Active Insurance Policies Plan Name Member ID Group # Subscriber Relationship Effect en Dates 1 - [facility] Elect [id number] Lenin Graham [facility] Clinical Notes Includes: Signed Clinical Notes starting from 02/17/2022 * Progress note Date Encounter Last Documented by 08/28/2023 Procedure Last documented on 08/28/2023; 8:40 AM, Concepción CRAVEN; [facility], Chief Complaint CC right distal fibula avulsion fracture Date of injury 06/14/2023 HISTORY OF PRESENT ILLNESS HPI: This is a 57-year-old male who we have been treating for a right distal fibula avulsion fracture. He is here today for 6-week follow-up Patient has returned to work. He is currently not using the boot. He is overall doing well. He does deny of some mild stiffness. He denies any paresthesias. He states he takes ibuprofen sometimes at night when it aches. Physical exam General:AOx3 Musculoskeletal: on exam of the patient's right ankle there is minimal swelling noted. There is a small bump overlying the anterior aspect of the distal tibia. He is nontender to palpation when this was palpated. He is nontender to palpation throughout the fibula. He has full non painful range of motion throughout the ankle and toes. Neurovascular intact. IMAGING No x-rays taken today IMPRESSION 1. right distal fibula avulsion fracture PLAN Physical therapy was discussed with the patient. He declined at this time. He states he will do exercises at home. He may return to activities as normal. He is instructed to follow-up with our clinic as needed if any new issue arises or if symptoms return. Case discussed with Dr. Plascencia who agrees with the above plan. Current Medication - Ibuprofen 600 MG Oral Tablet 0 days, 0 refills - traMADol HCl 50 MG Oral Tablet 0 days, 0 refills Physical Findings - Vitals taken 08/28/2023 08:03 am BP-Sitting 113/74 mmHg Pulse Rate-Sitting 79 bpm Temp-Temporal 96.9 F Height 70 in Weight 148 lbs Body Mass Index 21.2 kg/m2 Body Surface Area 1.8 m2 Oxygen Saturation 89 % Plan StartCited - Sprain of unspecified ligament of right ankle, subs encntr Follow Up/Appointment: PRN EndCited * Progress note Date Encounter Last Documented by 07/17/2023 Procedure Last documented on 07/17/2023; 8:32 AM, David Santana MD; [facility], Chief Complaint Avulsion fracture right distal fibula [...] aspect of right ankle joint still present * Progress note Date Encounter Last Documented by 06/19/2023 New Patient Last documented on 06/19/2023; 9:55 AM, Concepción CRAVEN; [facility], History of Present Illness CC right distal [...]
--- OUTSIDE RECORDS SUMMARY | 2024-04-09 14:00 | XMS_ITS | Clinical Summary ---
Author Organization [place] [facility] Address [address] [place] [address] Phone Care Team Providers Care Chemical Equipment Repairer Name Role Phone NO PCP, , Primary Care Provider Unavailabl e [facility] Un[facility] Unavailable Reason for Visit and Chief Complaint Procedure Plan of Treatment Pending Tests Order Diagnosis Results Due Ordering P jasmyn Follow Up - Appointment PRN Sprain o f unspecified ligament of right ankle, subs encntr 08/28/23 Concepción CRAVEN Last Documented On 8:40AM ; [facility] Assessments Includes: Assessments from this encounter No Assessments Recorded Medical Equipment - Implanted Devices Includes: Current Devices No Medical Equipment Recorded Medications Includes: Medications discussed during this encounter and other current Medications Current Medications (continue as prescribed) traMADol HCl 50 MG Oral Tablet 06/19/2023 Provider: Diagnosis: Last Documented On 4 8:57AM By Preet Larson ; [facility] Ibuprofen 600 MG Oral Tablet 06/19/2023 Provider: Diagnosis: Last Documented On 4 8:57AM By Preet Larson ; [facility] Medications Administered Includes: Administered Medications from this encounter No Administered Medications Recorded Vital Signs Includes: Vital Signs from this encounter Vital Name 08/28/2023 08:03A Blood Pressure Sitting (mmHg) 113/74 Pulse Rate-Sitting (bpm) 79 Temp-Temporal 96.9 Height (in) 70 Weight (lb) 148 Body Mass Index 21.2 Body Surface Area 1.8 Oxygen Saturation (%) 89 Last Documented: On 08/28/2023 8:03AM ; [facility] Results Includes: Results discussed during this encounter No Results Recorded For Specified Dates History of Present Illness Includes: History of Present Illness from this encounter No History of Present Illness Recorded Social [...] Time Check-Out Time Diagnosis Procedure Concepción CRAVEN [facility], 4 8:00AM 8:37AM Insurance Includes: Active Insurance Policies Plan Name Member ID Group # Subscriber Relationship Effect en Dates 1 - [employer] [id number] Lenin escalante Clinical Notes Includes: Clinical Notes from this encounter * Progress note Date Encounter Last Documented by 08/28/2023 Procedure Last documented on 08/28/2023; 8:40 AM, Concepción CRAVEN; [facility], Chief Complaint CC right distal fibula avulsion [...]
--- NOTE | 2024-04-09 14:04 | MHC.OFFVIS ---
Vital Signs 04/09/24 14:06 Height 5 ft 10 in Weight 156 lb 4 oz BMI 22.4 BP 110/80 Blood Pressure Location Rt brachial Position Sitting Pulse 90 Pulse Source Pulse Oximeter Pulse Oximetry (%) 96 Oxygen Delivery Method Room Air Intake Visit Reasons: 6 month F/U Intake Note: Patient presents for a 6 mo fu for Tourette's syndrome. Pt has no concerns. 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 Patient reports his right ankle sprain from 06/28/2023, has improved, but can be a little sore in the colder weather. Pt reports his tics are stable. Notes about a month ago, he forgot his am dose of clonazepam due to a water line break at his job which disrupted his usual routine, and he noticed left chest wall motor tics. He is typically using Clonazepam 2-3 tabs per day. [facility] Surgical History H/O hernia repair Family History Mother Diabetes Heart problem Father FH: heart attack Social History Alcohol intake: current Alcohol intake frequency: does not drink Patient Tobacco Use Status: Never used Tobacco Physical Exam Vital Signs: Last Vital Signs Pulse 90 04/09/24 14:06 BP 110/80 04/09/24 14:06 Pulse Ox 96 04/09/24 14:06 Oxygen Delivery Method Room Air 04/09/24 14:06 BMI result Body Mass Index 22.4 Const General: cooperative and no acute distress Orientation/consciousness: patient oriented x3 Resp Effort & Inspection: normal respiratory effort and able to speak in complete sentences Neuro General: patient oriented x3 Cranial nerves: Yes CN's II-XII intact bilaterally Gait exam (Neuro): Normal gait present Motor exam (neuro): 5/5 motor strength present throughout Assessment & Plan Assessment & Plan (1) Tourette's disorder: Comment: initial s/s age 22. motor (dystonic) tic. Code(s): F95.2 - Tourette's disorder Category: Medical Plan Continue clonazepam 1 mg p.o. BID-TID Future considerations:?Clonidine. f/u in 6 months or sooner prn Medications: Refilled clonazepam 1 mg PO TID 30 days 90 tabs 5RF Coding Level of Care Code Est Pt Level 3 (37020) Diagnoses Tourette's disorder F95.2
[2024-04-09 14:06] VITALS: BP 110/80; PULSE 90; O2SAT 96; BMI 22.4
== END 2024-04-09 14:40 | disposition home or self-care (01) ==
PROVIDERS: PCP Internal Medicine; Visit Provider Nurse Practitioner Family
DX: F95.2 Tourette's disorder (principal)
CPT/HCPCS: 99213

== ENCOUNTER → 2024-04-09 13:57 | Outpatient (BNVA) | payer BC, SELFPAY | PROVIDERS: PCP Internal Medicine; Visit Provider Nurse Practitioner Family ==

== ENCOUNTER 2024-10-05 14:46 | Outpatient (AMB) | payer MEDICAID, SELFPAY ==
[2024-10-05 14:48] VITALS: BP 126/72; PULSE 79; O2SAT 96; BMI 21.3
--- NOTE | 2024-10-05 14:48 | MHC.OFFVIS ---
Vital Signs 10/05/24 14:48 Height 5 ft 10 in Weight 148 lb 8 oz BMI 21.3 BP 126/72 Blood Pressure Location Lt brachial Position Sitting Pulse 79 Pulse Source Pulse Oximeter Pulse Oximetry (%) 96 Oxygen Delivery Method Room Air Intake Visit Reasons: Follow up 6mo Intake Note: Patient presents follow up Tourette's Patient would like Clonozepam refill today. 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 Patient denies any significant interval medical history changes. However, he notes he is working with his PCP on being referred to add spelling and grammar to home for evaluation of chronic right shoulder discomfort. He states his tics are overall stable, maybe a little bit better, since he was let go from his job.? He states he may consider working for himself or applying for disability. He will notice recurrence of left chest wall motor tics if he misses a dose of clonazepam-though usually is compliant with clonazepam 2-3 times per day. [facility] Surgical History H/O hernia repair Family History Mother Diabetes Heart problem Father FH: heart attack Social History Alcohol intake: current Alcohol intake frequency: does not drink Patient Tobacco Use Status: Never used Tobacco Physical Exam Vital Signs: Last Vital Signs Pulse 79 10/05/24 14:48 BP 126/72 10/05/24 14:48 Pulse Ox 96 10/05/24 14:48 Oxygen Delivery Method Room Air 10/05/24 14:48 BMI result Body Mass Index 21.3 Const General: cooperative and no acute distress Orientation/consciousness: patient oriented x3 Resp Effort & Inspection: normal respiratory effort and able to speak in complete sentences Neuro General: patient oriented x3 Cranial nerves: Yes CN's II-XII intact bilaterally Gait exam (Neuro): Normal gait present Motor exam (neuro): 5/5 motor strength present throughout Assessment & Plan Assessment & Plan (1) Tourette's disorder: Comment: initial s/s age 22. motor (dystonic) tic. Code(s): F95.2 - Tourette's disorder Category: Medical Plan Continue clonazepam 1 mg p.o. BID-TID Future considerations:?Clonidine. f/u in 6 months or sooner prn Coding Level of Care Code Est Pt Level 3 (08957) Diagnoses Tourette's disorder F95.2
--- OUTSIDE RECORDS SUMMARY | 2024-10-05 15:33 | XMS_ITS | Clinical Summary ---
Author Organization [address] Address [address] [place] [phone] Phone Care Team Providers Care Automotive Service Manager Name Role Phone Anam Michele Primary Care Provider [phone] Social History Tobacco Use Types Packs/Day Years Used Date Smoking Tobacco: Never Assessed Sex and Gender Information Value Date Recorded Sex Assigned at Not on file Legal Sex Male 7:32 PM EST Gender Identity Not on file Sexual Orientation Not on file Plan of Treatment Health Maintenance Due Date Last Done Comments Diabetes: Annual Foot Exam 1982 Diabetes: Annual Retina Eye Exam 1982 DTaP,Tdap,and Td Vaccines (1 - Tdap) 08/08/1991 Hepatitis B Vaccines (1 of 3 - 19+ 3-dose series) 08/08/1991 Pneumococcal Vaccine: 50+ Years (1 of 2 - PCV) 08/08/1991 Colorectal Cancer Screening: Colonoscopy 02/09/2022 HIV Screening 02/09/2022 Hepatitis C Screening 02/09/2022 Social Influencers of Health Screening 02/09/2022 Zoster Vaccines (1 of 2) 2022 COVID-19 Vaccine (4 - 2023-2 5 season) 2023 12/28/2020, 04/06/2020, 03/16/2020 Depression Screening 03/10/2024 Influenza Vaccine (#1) 2024 , 12/26/2021, 11/21/2014 Diabetes: Annual Urine Albumin-Creatinine Ratio (uACR) 01/26/2025 01/27/2024 Diabetes: Blood Sugar Contro l Test (HGBA1C) 03/30/2025 09/27/2024, 05/31/2024, 01/27/2024 Diabetes: Annual GFR (Glomerular Filtration Rate) 09/27/2025 09/27/2024, 05/31/2024, 01/27/2024 Cholesterol Screening (Lipid Panel) 09/27/2029 09/27/2024, 05/31/2024, 01/27/2024 HIB Vaccines Aged Out No longer [...] patient's age to complete this topic Meningococcal B Vaccine Aged Out No l onger eligible based on patient's age to complete this topic RSV Immunization Patients Under 20 months Aged Out No longer eligible b ased on patient's age to complete this topic Varicella Vaccines Aged Out No longer eligible based on patient's age to complete this topic Procedures Procedure Name Priority Date/Time Associated Diagnosis Comments HEMOGLOBIN A1C Routine 09/27/2024 7:44 AM EDT Diabetes mellitus (CMS/HCC V24, CMS/HCC V28) Hyperlipemia COMPREHENSIVE METABOLIC PANEL Routine 09/27/2024 7:44 AM EDT Diabetes mellitus (CMS/HCC V24, CMS/HCC V28) Hyperlipemia CREATINE KINASE Routine 09/27/2024 7:44 AM EDT Diabetes mellitus (CMS/HCC V24, CMS/HCC V28) Hyperlipemia LIPID PANEL WITH REFLEX TO DIRECT LDL Routine 09/27/2024 7:44 AM EDT Diabetes mellitus (CMS/HCC V24, CMS/HCC V28) Hyperlipemia MICROALBUMIN CREATININE URINE RATIO Routine 01/27/2024 7:55 AM EST Diabetes mellitus (CMS/HCC V24, CMS/HCC V28) Hyperlipemia Routine general medical examination at a health care facility from Last 3 Months or Most Recently Relevant to Health Maintenance Results * (ABNORMAL) Lipid panel with reflex to direct LDL (09/27/2024 7:44 AM EDT) Cholesterol 190 0 - 200 mg/dL LAB CHEMISTRY METHOD 09/27/2024 12:56 PM EDT [facility] Triglycerides 118 0 - 150 mg/dL LAB CHEMISTRY METHOD 09/27/2024 12:56 PM EDT [facility] HDL 48 >=40 mg/dL LAB CHEMISTRY METHOD 09/27/2024 12:56 PM EDT [facility] LDL Calculated 118(H) 0 - 100 mg/dL LAB CHEMISTRY METHOD 09/27/2024 12:56 PM EDT [facility] VLDL Cholesterol Shubham 23.6 mg/dL LAB CHEMISTRY METHOD 09/27/2024 12:56 PM EDT [facility] Non HDL Chol. (LDL+VLDL) 142 <145 mg/dL LAB CHEMISTRY METHOD 09/27/2024 12:56 PM EDT [facility] Chol/HDL Ratio 4.0 0.0 - 4.4 LAB CHEMISTRY METHOD 09/27/2024 12:56 PM EDT [facility] Blood Venous blood specimen / Unknown Venipuncture / Unknown 09/27/2024 7:44 AM EDT 09/27/2024 7:44 AM EDT us Dot Mariee CLASSIFICATION ANALYST LAB BLOOD ORDERABLES Fi nal Result [facility] [address] [place] [address], * (ABNORMAL) Hemoglobin A1c (09/27/2024 7:44 AM EDT) Hemoglobin A1C 7.3(H) <6.5 % LAB CHEMISTRY METHOD 09/27/2024 1:04 PM EDT [facility] Mean Bld Glu Estim. 163 mg/dL LAB CHEMISTRY METHOD 09/27/2024 1:04 PM EDT [facility] Blood Venous blood specimen / Unknown Venipuncture / Unknown 09/27/2024 7:44 AM EDT 09/27/2024 7:44 AM EDT Dot Mariee CLASSIFICATION ANALYST LAB BLOOD ORDERABLES Fi nal Result Performing Organization Address City/[facility]/ZIP Co de Phone Number [facility] [address] [place] [address], [place] [phone] * Creatine kinase (09/27/2024 7:44 AM EDT) Total CK 56 22 - 269 unit/L LAB CHEMISTRY METHOD 09/27/2024 12:56 PM EDT [facility] Blood Venous blood specimen / Unknown Venipuncture / Unknown 09/27/2024 7:44 AM EDT 09/27/2024 7:44 AM EDT Dot Mariee CLASSIFICATION ANALYST LAB BLOOD ORDERABLES Fi nal Result Performing Organization Address City/[facility]/ZIP Co de Phone Number [facility] [address] [place] [address], [place] [phone] * (ABNORMAL) Comprehensive metabolic panel (09/27/2024 7:44 AM EDT) Pathologist [facility] Sodium 136 133 - 145 mmol/L LAB CHEMISTRY METHOD 09/27/2024 12:56 PM EDT [facility] Potassium 4.3 3.5 - 5.5 mmol/L LAB CHEMISTRY METHOD 09/27/2024 12:56 PM EDT [facility] Chloride 102 96 - 110 mmol/L LAB CHEMISTRY METHOD 09/27/2024 12:56 PM EDT [facility] CO2 25 21 - 32 mmol/L LAB CHEMISTRY METHOD 09/27/2024 12:56 PM EDT [facility] Anion Gap 9 3 - 11 LAB CHEMISTRY METHOD 09/27/2024 12:56 PM [facility] Glucose 187(H) 70 - 100 mg/dL LAB CHEMISTRY METHOD 09/27/2024 12:56 PM [facility] BUN 21 5 - 25 mg/dL LAB CHEMISTRY METHOD 09/27/2024 12:56 PM [facility] Creatinine 0.87 0.70 - 1.30 mg/dL LAB CHEMISTRY METHOD 09/27/2024 12:56 PM [facility] eGFR 104 >=60 mL/min/1. 73m2 LAB CHEMISTRY METHOD 09/27/2024 12:56 PM [facility] Comment:Calculation based on the Chronic Kidney Disease Epidemiology Collaboration (CKD-EPI) equation refit without adjustment for race. BUN/Creatinine Ratio 24.1 LAB CHEMISTRY METHOD 09/27/2024 12:56 PM [facility] Calcium 9.3 8.5 - 10.5 mg/dL LAB CHEMISTRY METHOD 09/27/2024 12:56 PM [facility] AST (SGOT) 18 10 - 42 unit/L LAB CHEMISTRY METHOD 09/27/2024 12:56 PM [facility] ALT (SGPT) 29 10 - 60 unit/L LAB CHEMISTRY METHOD 09/27/2024 12:56 PM [facility] Alkaline Phosphatase 136(H) 42 - 121 unit/L LAB CHEMISTRY METHOD 09/27/2024 12:56 PM [facility] Total Protein 7.5 6.0 - 8.0 g/dL LAB CHEMISTRY METHOD 09/27/2024 12:56 PM [facility] Albumin 4.2 3.2 - 5.0 g/dL LAB CHEMISTRY METHOD 09/27/2024 12:56 PM [facility] Total Bilirubin 0.8 0.0 - 1.4 mg/dL LAB CHEMISTRY METHOD 09/27/2024 12:56 PM [facility] Blood Venous blood specimen / Unknown Venipuncture / Unknown 09/27/2024 7:44 AM EDT 09/27/2024 7:44 AM EDT Dot Mariee CLASSIFICATION ANALYST LAB BLOOD ORDERABLES Fi nal Result Performing Organization Address [facility]/ZIP Co de Phone Number [facility] [address] [place] [address], [place] [phone] * Microalbumin creatinine urine ratio (01/27/2024 7:55 AM EST) Creatinine, Urine 118.0 mg/dL LAB CHEMISTRY METHOD 01/27/2024 12:18 PM EST [facility] Microalb, Ur 9.0 0.0 - 29.0 mg/L LAB CHEMISTRY METHOD 01/27/2024 12:18 PM EST [facility] Microalb/Creat Ratio 8 <30 mg/g creat LAB CHEMISTRY METHOD 01/27/2024 12:18 PM EST [facility] Urine Urine specimen obtained by clean catch procedure / Unknown Non-blood Collection / Unknown 01/27/2024 7:55 AM EST 01/27/2024 7:55 AM EST Dot Mariee CLASSIFICATION ANALYST LAB URINE ORDERABLES Fi nal Result Performing Organization Address City/[facility]/ZIP Co de Phone Number [facility] [address] [place] [address], [place] [phone] from Last 3 Months or Most Recently Relevant to Health Maintenance Care Teams Automotive Service Manager Relationship Specialty Start Date End Date Anam Michele DO [address] [place] [phone] PCP - General Internal Medicine 01/27/24
== END 2024-10-05 15:25 | disposition home or self-care (01) ==
LOC: HO.HSMS 14:46
PROVIDERS: PCP Internal Medicine; Visit Provider Nurse Practitioner Family
DX: F95.2 Tourette's disorder (principal)
CPT/HCPCS: 99213

== ENCOUNTER → 2024-10-05 14:46 | Outpatient (BNVA) | payer MEDICAID, SELFPAY | PROVIDERS: PCP Internal Medicine; Visit Provider Nurse Practitioner Family | DX: F95.2 Tourette's disorder (principal) | CPT/HCPCS: 99212 ==